=== PATIENT | female | born 1995 | race Caucasian/White ===

== ENCOUNTER 2019-09-07 13:27 | Emergency (ER) | payer MEDICAID ==
[~2019-09-07] VITALS: Ht 149.9 cm; Wt 84.4 kg
[2019-09-07 13:30] VITALS: BP_SYST 138
[2019-09-07] MEDS: KETOROLAC TROMETHAMINE 30 MG VIAL IVP ONE (15:05)
[2019-09-07] MEDS: NACL 0.9% 1,000 ML IV ONE (15:05)
[2019-09-07] MEDS: ONDANSETRON HCL 4 MG/2 ML VIAL IVP ONE (15:06)
[2019-09-07 15:19] LABS: BASOPHILS # (AUTO) 0.1 K/uL (0.0-0.2); EOSINOPHILS # (AUTO) 0.1 K/uL (0.0-0.4); EOSINOPHILS % (AUTO) 1.4 % (0.0-4.0); HEMATOCRIT 38.5 % (36-48); HEMOGLOBIN 13.1 g/dL (12.0-16.0); LYMPHOCYTES # (AUTO) 2.4 K/uL (1.0-5.5); LYMPHOCYTES % (AUTO) 31.5 % (20.5-51.5); MEAN CORPUSCULAR HEMOGLOBIN 28 pg (27-31); MEAN CORPUSCULAR HGB CONC 34 % (32-36); MEAN CORPUSCULAR VOLUME 81 fL (79.0-98.0); MONOCYTES # (AUTO) 0.5 K/uL (0.0-1.0); MONOCYTES % (AUTO) 6.6 % (1.7-9.3); NEUTROPHILS # (AUTO) 4.6 K/uL (1.8-7.7); NEUTROPHILS % (AUTO) 59.5 % (40.0-70.0); PLATELET COUNT (AUTO) 323 K/uL (130-430); RED BLOOD CELL COUNT(AUTO) 4.74 MIL/uL (4.2-6.2); WHITE BLOOD COUNT (AUTO) 7.7 K/uL (4.8-10.8)
[2019-09-07 15:22] LABS: CALCIUM 9.2 mg/dL (8.4-11.0); CREATININE 0.81 mg/dL (0.55-1.30); POTASSIUM 3.7 mmol/L (3.5-5.1)
[2019-09-07 15:28] LABS: ALBUMIN 3.7 g/dL (3.4-4.8); TOTAL BILIRUBIN 0.3 mg/dL (0.0-1.0)
[2019-09-07] MEDS: PANTOPRAZOLE SODIUM 40 MG/VIAL (PROTONIX) IVP ONE (16:25)
[2019-09-07 16:33] VITALS: BP_SYST 108
== END 2019-09-07 16:30 | disposition home or self-care (01) ==
LOC: SED 13:27
DX: R10.13 Epigastric pain (principal); D64.9 Anemia, unspecified
CPT/HCPCS: 36415; 74018; 76700; 80053; 81025; 83690; 85025; 96374; 96375; 99284; C9113; J1885; J2405; J7030

== ENCOUNTER 2021-05-01 17:17 | Emergency (ER) | payer MEDICAID ==
[~2021-05-01] VITALS: Ht 149.9 cm; Wt 88.5 kg
[2021-05-01 17:33] VITALS: BP_SYST 132
--- NOTE | 2021-05-01 17:50 | NUR ---
Patient to ER bed 4 to gown for evaluation. Side rails up. Report given to CORINA ODONNELL.
--- NOTE | 2021-05-01 17:55 | NUR ---
ER DR. ROMEO AT THE BEDSIDE EXAMINING PT
--- NOTE | 2021-05-01 18:00 | NUR ---
PT CAME IN FROM HOME C/O BILATERAL FLANK PAIN RADIATING TO LOWER ABD. DENIES N/V/D. PT IS AMBULATORY, AAOX4, V/S STABLE
[2021-05-01 18:28] LABS: BILIRUBIN,URINE NEGATIVE (NEGATIVE); GLUCOSE,URINE NEGATIVE (NEGATIVE); KETONES,URINE NEGATIVE (NEGATIVE); LEUKOCYTE ESTERASE ,URINE 2+ (NEGATIVE); NITRITE, URINE NEGATIVE (NEGATIVE); PROTEIN URINE NEGATIVE (NEGATIVE); UROBILINOGEN,URINE 0.2 (0.2-1.0)
[2021-05-01 18:52] LABS: BLOOD, URINE TRACE (NEGATIVE); COLOR,URINE STRAW (YELLOW)
[2021-05-01 18:53] LABS: CLARITY/URINE CLEAR (CLEAR)
[2021-05-01] MEDS ORDERED: CEPH250C PO (18:58)
[2021-05-01 19:02] LABS: BACTERIA,URINE FEW /HPF (None Seen); MUCUS,URINE None Seen /LPF (None Seen); RBC,URINE 0-3 /HPF (0-3)
--- NOTE | 2021-05-01 19:10 | NUR ---
Patient given written and verbal discharge instructions and verbalizes understanding. ER MD discussed with patient the results and treatment provided. Patient in stable condition. ID arm band removed. Rx of KEFLEX given. Patient educated on pain management and to follow up with PMD. Pain Scale 0/10. Opportunity for questions provided and answered. Medication side effect fact sheet provided.
[2021-05-01 19:18] VITALS: BP_SYST 132
== END 2021-05-01 19:18 | disposition home or self-care (01) ==
LOC: SED 17:17
DX: N39.0 Urinary tract infection, site not specified (principal); Z79.899 Other long term (current) drug therapy
CPT/HCPCS: 81000; 81025; 87086; 99283

== ENCOUNTER 2021-06-01 18:46 | Emergency (ER) | payer MEDICAID ==
[~2021-06-01] VITALS: Ht 154.9 cm; Wt 68.0 kg
[2021-06-01 18:46] VITALS: BP_SYST 128
[~2021-06-01 18:46] MED LIST: CEPH250C PO
--- NOTE | 2021-06-01 18:46 | NUR ---
BROUGHT BACK TO BED #3 AND TRIAGED. REPORT GIVEN TO [employer] [facility]
--- NOTE | 2021-06-01 18:50 | NUR ---
Pt came in with complaint of vaginal bleed spotting. Pt reports spotting throughout day notcing upon wiping when urinating. Pt denies any pain. Pt AAOX4 speaking full sentences no distress noted VSS. Last menstrual cycle was Mar 15 2021. Pt reports positive test approximatley last month
--- NOTE | 2021-06-01 19:09 | NUR ---
Urine collected and sent to lab.
--- NOTE | 2021-06-01 19:10 | NUR ---
Lab at bedside.
--- NOTE | 2021-06-01 19:16 | NUR ---
Care endorsed to Tyrese ODONNELL
[2021-06-01 19:40] LABS: BASOPHILS # (AUTO) 0.1 K/uL (0.0-0.2); BASOPHILS % (AUTO) 0.8 % (0.0-2.0); EOSINOPHILS # (AUTO) 0.1 K/uL (0.0-0.4); HEMATOCRIT 36.5 % (36-48); LYMPHOCYTES # (AUTO) 2.9 K/uL (1.0-5.5); LYMPHOCYTES % (AUTO) 32.2 % (20.5-51.5); MEAN CORPUSCULAR HEMOGLOBIN 27 pg (27-31); MEAN CORPUSCULAR HGB CONC 33 % (32-36); MEAN CORPUSCULAR VOLUME 81 fL (79.0-98.0); MONOCYTES # (AUTO) 0.5 K/uL (0.0-1.0); NEUTROPHILS # (AUTO) 5.3 K/uL (1.8-7.7); PLATELET COUNT (AUTO) 379 K/uL (130-430); RED BLOOD CELL COUNT(AUTO) 4.49 MIL/uL (4.2-6.2); RED CELL DISTRIBUTION WIDTH 15.4 % (9.0-15.0); WHITE BLOOD COUNT (AUTO) 8.9 K/uL (4.8-10.8)
[2021-06-01 19:44] LABS: BILIRUBIN,URINE NEGATIVE (NEGATIVE); BLOOD, URINE 1+ (NEGATIVE); CLARITY/URINE SL CLOUDY (CLEAR); COLOR,URINE YELLOW (YELLOW); GLUCOSE,URINE NEGATIVE (NEGATIVE); KETONES,URINE NEGATIVE (NEGATIVE); LEUKOCYTE ESTERASE ,URINE 1+ (NEGATIVE); NITRITE, URINE NEGATIVE (NEGATIVE); PROTEIN URINE NEGATIVE (NEGATIVE); UROBILINOGEN,URINE 0.2 (0.2-1.0)
[2021-06-01 19:50] LABS: INR 0.9 (0.8-1.2); PROTHROMBIN TIME 9.3 SECS (9.5-12.5)
[2021-06-01 19:56] LABS: BACTERIA,URINE MODERATE /HPF (None Seen); MUCUS,URINE None Seen /LPF (None Seen); URINE AMORPHOUS PHOSPHATES 2+ /HPF (None Seen)
[2021-06-01 20:50] VITALS: BP_SYST 128
--- NOTE | 2021-06-01 20:50 | NUR ---
Patient given written and verbal discharge instructions and verbalizes understanding. ER DR SANDRITA SCHROEDER discussed with patient the results and treatment provided. Patient in stable condition. ID arm band removed. Patient educated on pain management and to follow up with PMD. Pain Scale . Opportunity for questions provided and answered. Medication side effect fact sheet provided.
== END 2021-06-01 20:50 | disposition home or self-care (01) ==
LOC: SED 18:46
DX: O20.9 Hemorrhage in early pregnancy, unspecified (principal); Z79.899 Other long term (current) drug therapy; Z3A.01 Less than 8 weeks gestation of pregnancy
CPT/HCPCS: 36415; 76801; 76802; 81000; 81025; 84702; 85025; 85610-TC; 85730-TC; 86900; 86901; 87086; 99284

== ENCOUNTER 2021-09-30 18:41 | Emergency (ER) | payer MEDICAID ==
[~2021-09-30] VITALS: Ht 147.3 cm; Wt 89.8 kg
--- NOTE | 2021-09-30 18:45 | NUR ---
Pt triaged and placed in waiting room, EKG completed and reviewed by Dr. Leigh
[2021-09-30 19:00] VITALS: BP_SYST 134
--- NOTE | 2021-09-30 21:24 | NUR ---
Patient to ER bed FUNES to gophi for evaluation. Side rails up. Report given to PETEY ODONNELL
--- NOTE | 2021-09-30 22:11 | NUR ---
Pt BIB family to ED for Anxiety eval and mild chest pressure, with h/o anxiety. No other complaints Resting on gurney rails up
--- NOTE | 2021-09-30 22:15 | NUR ---
Dr. Licona bedside for pt eval
--- NOTE | 2021-09-30 22:19 | NUR ---
CXR well tolerated
--- NOTE | 2021-09-30 22:48 | NUR ---
Dr. Licona bedside for pt update
[2021-09-30] MEDS ORDERED: KETOROLAC TROMETHAMINE 60 MG/2 ML VIAL IM ONE (23:00)
[2021-09-30] MEDS ORDERED: METOCLOPRAMIDE HCL 10 MG/2 ML VIAL IM ONE (23:00)
--- NOTE | 2021-09-30 23:33 | NUR ---
VSS no s/s of acute distress Resting on gurney rails up
[2021-09-30 23:43] LABS: BASOPHILS # (AUTO) 0.1 K/uL (0.0-0.2); BASOPHILS % (AUTO) 0.8 % (0.0-2.0); EOSINOPHILS # (AUTO) 0.1 K/uL (0.0-0.4); EOSINOPHILS % (AUTO) 0.8 % (0.0-4.0); HEMATOCRIT 36.6 % (36-48); HEMOGLOBIN 12.2 g/dL (12.0-16.0); LYMPHOCYTES # (AUTO) 2.7 K/uL (1.0-5.5); LYMPHOCYTES % (AUTO) 29.6 % (20.5-51.5); MEAN CORPUSCULAR HEMOGLOBIN 26 pg (27-31); MEAN CORPUSCULAR HGB CONC 33 % (32-36); MEAN CORPUSCULAR VOLUME 78 fL (79.0-98.0); MONOCYTES # (AUTO) 0.5 K/uL (0.0-1.0); MONOCYTES % (AUTO) 5.9 % (1.7-9.3); NEUTROPHILS # (AUTO) 5.7 K/uL (1.8-7.7); NEUTROPHILS % (AUTO) 62.9 % (40.0-70.0); PLATELET COUNT (AUTO) 391 K/uL (130-430); RED BLOOD CELL COUNT(AUTO) 4.68 MIL/uL (4.2-6.2); RED CELL DISTRIBUTION WIDTH 15.3 % (9.0-15.0); WHITE BLOOD COUNT (AUTO) 9.1 K/uL (4.8-10.8)
[2021-10-01 00:14] LABS: CALCIUM 9.3 mg/dL (8.4-11.0); CREATININE 0.81 mg/dL (0.55-1.30); POTASSIUM 3.7 mmol/L (3.5-5.1)
[2021-10-01 00:25] LABS: TOTAL BILIRUBIN 0.3 mg/dL (0.0-1.0)
--- NOTE | 2021-10-01 00:39 | NUR ---
Lab spoke on phone promising results will be posted shortly
[2021-10-01 01:05] VITALS: BP_SYST 134
--- NOTE | 2021-10-01 01:05 | NUR ---
Patient given written and verbal discharge instructions and verbalizes understanding. ER MD discussed with patient the results and treatment provided. Patient in stable condition. ID arm band removed. Patient educated on pain management and to follow up with PMD. Pain Scale 0/10 Opportunity for questions provided and answered.
== END 2021-10-01 01:05 | disposition home or self-care (01) ==
LOC: SED 18:41
DX: R07.89 Other chest pain (principal); F41.9 Anxiety disorder, unspecified; Z79.899 Other long term (current) drug therapy
CPT/HCPCS: 36415; 71045; 80053; 84484; 84702; 85025; 93005; 96372; 99285; J1885

== ENCOUNTER 2021-11-25 15:37 | Emergency (ER) | payer MEDICAID ==
[~2021-11-25] VITALS: Ht 147.3 cm; Wt 83.5 kg
[2021-11-25 16:03] VITALS: BP_SYST 119
--- NOTE | 2021-11-25 16:03 | NUR ---
Patient triaged and placed in waiting room. VSS and patient appears in no acute distress at this time. Accompanied by self, awaiting available bed, and MD notified of need for MSE.
--- NOTE | 2021-11-25 16:08 | NUR ---
PAtient brought in complaining of lower abdominal pain for 2 days. The abdominal pain is described as cramping. Otherwise, denies vaginal bleeding, urinary symptoms, nausea, vomiting, or any other complaints.
--- NOTE | 2021-11-25 16:11 | NUR ---
ER Dr. Santillan in triage examining patient.
[2021-11-25 16:48] LABS: BASOPHILS # (AUTO) 0.1 K/uL (0.0-0.2); BASOPHILS % (AUTO) 0.8 % (0.0-2.0); EOSINOPHILS # (AUTO) 0.4 K/uL (0.0-0.4); EOSINOPHILS % (AUTO) 3.5 % (0.0-4.0); HEMATOCRIT 36.7 % (36-48); HEMOGLOBIN 12.4 g/dL (12.0-16.0); LYMPHOCYTES # (AUTO) 2.7 K/uL (1.0-5.5); LYMPHOCYTES % (AUTO) 26.5 % (20.5-51.5); MEAN CORPUSCULAR HEMOGLOBIN 26 pg (27-31); MEAN CORPUSCULAR HGB CONC 34 % (32-36); MEAN CORPUSCULAR VOLUME 77 fL (79.0-98.0); MONOCYTES # (AUTO) 0.7 K/uL (0.0-1.0); MONOCYTES % (AUTO) 7.4 % (1.7-9.3); NEUTROPHILS # (AUTO) 6.3 K/uL (1.8-7.7); NEUTROPHILS % (AUTO) 61.8 % (40.0-70.0); PLATELET COUNT (AUTO) 368 K/uL (130-430); RED BLOOD CELL COUNT(AUTO) 4.74 MIL/uL (4.2-6.2); RED CELL DISTRIBUTION WIDTH 16.3 % (9.0-15.0); WHITE BLOOD COUNT (AUTO) 10.1 K/uL (4.8-10.8)
[2021-11-25 18:07] VITALS: BP_SYST 116
--- NOTE | 2021-11-25 18:13 | NUR ---
Patient given written and verbal discharge instructions and verbalizes understanding. ER MD discussed with patient the results and treatment provided. Patient in stable condition. ID arm band removed. No Rx given. Patient educated on pain management and to follow up with PMD. Pain Scale 0/10 Opportunity for questions provided and answered. follow up in 48 hours for hcg check
== END 2021-11-25 18:07 | disposition home or self-care (01) ==
LOC: SED 15:37
DX: O26.891 Other specified pregnancy related conditions, first trimester (principal); R10.30 Lower abdominal pain, unspecified; Z79.899 Other long term (current) drug therapy; Z3A.01 Less than 8 weeks gestation of pregnancy
CPT/HCPCS: 36415; 76801; 81025; 84702; 85025; 99284

== ENCOUNTER 2021-11-27 10:57 | Emergency (ER) | payer MEDICAID, SELFPAY ==
[~2021-11-27] VITALS: Ht 147.3 cm; Wt 83.9 kg
--- NOTE | 2021-11-27 11:00 | NUR ---
Patient triaged and placed in waiting room. VSS and patient appears in no acute distress at this time. Accompanied by self , awaiting available bed, and MD notified of need for MSE.
--- NOTE | 2021-11-27 11:10 | NUR ---
Pt brought by self, A&Ox4, pt presents to ER for blood work/ pt states she was seen 2 days ago for abd cramping/ 4 weeks , pt was told to f/u in 2 days, denies bleeding, skin pink and warm, cap refill <3.
[2021-11-27 11:14] VITALS: BP_SYST 136
[2021-11-27 13:15] LABS: CALCIUM 9.2 mg/dL (8.4-11.0); CREATININE 0.58 mg/dL (0.55-1.30); POTASSIUM 3.6 mmol/L (3.5-5.1)
--- NOTE | 2021-11-27 14:05 | NUR ---
Dr Hester evaluating patient in the triage room
--- NOTE | 2021-11-27 16:50 | NUR ---
I WAS REPLENISHER FOR VAGINAL US. PT TOLERATED WELL.
[2021-11-27 17:45] LABS: HEMOGLOBIN 12.8 g/dL (12.0-16.0); MEAN CORPUSCULAR HEMOGLOBIN 26 pg (27-31); MEAN CORPUSCULAR HGB CONC 33 % (32-36); MEAN CORPUSCULAR VOLUME 79 fL (79.0-98.0); PLATELET COUNT (AUTO) 374 K/uL (130-430); RED BLOOD CELL COUNT(AUTO) 4.96 MIL/uL (4.2-6.2); RED CELL DISTRIBUTION WIDTH 16.2 % (9.0-15.0); WHITE BLOOD COUNT (AUTO) 8.6 K/uL (4.8-10.8)
[2021-11-27 18:13] VITALS: BP_SYST 136
--- NOTE | 2021-11-27 18:14 | NUR ---
Patient given written and verbal discharge instructions and verbalizes understanding. ER MD discussed with patient the results and treatment provided. Patient in stable condition. ID arm band removed. No Rx given. Patient educated on pain management and to follow up with PMD. Pain Scale 0/10. Opportunity for questions provided and answered. Medication side effect fact sheet provided.
== END 2021-11-27 18:13 | disposition home or self-care (01) ==
LOC: SED 10:57
DX: O26.891 Other specified pregnancy related conditions, first trimester (principal); R10.2 Pelvic and perineal pain; Z3A.01 Less than 8 weeks gestation of pregnancy
CPT/HCPCS: 36415; 80048; 83051; 84702; 85014; 85048; 85049-TC; 99283; 99284

== ENCOUNTER 2021-12-07 13:24 | Emergency (ER) | payer MEDICAID, SELFPAY ==
[~2021-12-07] VITALS: Ht 149.9 cm; Wt 56.7 kg
[2021-12-07 13:34] VITALS: BP_SYST 145
--- NOTE | 2021-12-07 13:34 | NUR ---
Patient to ER bed 06 to gown for evaluation. Side rails up.
--- NOTE | 2021-12-07 13:34 | NUR ---
26 years old female alert, oriented x4 walking to er with vaginal spotting reports 5 weeks LMP 10/27/21.
--- NOTE | 2021-12-07 13:35 | NUR ---
Dr Santillan evaluating patient at bedside
[2021-12-07 15:04] LABS: BASOPHILS # (AUTO) 0.1 K/uL (0.0-0.2); BASOPHILS % (AUTO) 0.9 % (0.0-2.0); EOSINOPHILS # (AUTO) 0.2 K/uL (0.0-0.4); EOSINOPHILS % (AUTO) 2.5 % (0.0-4.0); HEMATOCRIT 38.9 % (36-48); HEMOGLOBIN 12.8 g/dL (12.0-16.0); LYMPHOCYTES % (AUTO) 22.9 % (20.5-51.5); MEAN CORPUSCULAR HEMOGLOBIN 26 pg (27-31); MEAN CORPUSCULAR HGB CONC 33 % (32-36); MEAN CORPUSCULAR VOLUME 80 fL (79.0-98.0); MONOCYTES # (AUTO) 0.5 K/uL (0.0-1.0); MONOCYTES % (AUTO) 5.4 % (1.7-9.3); NEUTROPHILS # (AUTO) 5.9 K/uL (1.8-7.7); NEUTROPHILS % (AUTO) 68.3 % (40.0-70.0); PLATELET COUNT (AUTO) 374 K/uL (130-430); RED BLOOD CELL COUNT(AUTO) 4.89 MIL/uL (4.2-6.2); RED CELL DISTRIBUTION WIDTH 16.4 % (9.0-15.0); WHITE BLOOD COUNT (AUTO) 8.6 K/uL (4.8-10.8)
[2021-12-07 15:28] LABS: BILIRUBIN,URINE NEGATIVE (NEGATIVE); CLARITY/URINE CLEAR (CLEAR); COLOR,URINE YELLOW (YELLOW); GLUCOSE,URINE NEGATIVE (NEGATIVE); KETONES,URINE 1+ (NEGATIVE); LEUKOCYTE ESTERASE ,URINE 1+ (NEGATIVE); NITRITE, URINE NEGATIVE (NEGATIVE); PH,URINE 5.5 (5.0-8.0); PROTEIN URINE NEGATIVE (NEGATIVE); UROBILINOGEN,URINE 0.2 (0.2-1.0)
[2021-12-07 15:50] LABS: BLOOD, URINE TRACE (NEGATIVE)
[2021-12-07 15:52] LABS: BACTERIA,URINE FEW /HPF (None Seen)
[2021-12-07] MEDS ORDERED: NITR-85 PO (16:07)
[2021-12-07 16:51] VITALS: BP_SYST 122
--- NOTE | 2021-12-07 16:54 | NUR ---
condition stable d/c home with instructions after care reviewed understood left er ambulatory with steady gait.
--- NOTE | 2021-12-07 16:54 | NUR ---
Patient given written and verbal discharge instructions and verbalizes understanding. ER MD discussed with patient the results and treatment provided. Patient in stable condition. ID arm band removed. Rx of given. Patient educated on pain management and to follow up with PMD. Pain Scale . Opportunity for questions provided and answered. Medication side effect fact sheet provided.
== END 2021-12-07 16:51 | disposition home or self-care (01) ==
LOC: SED 13:24
DX: O20.0 Threatened abortion (principal); O23.40 Unspecified infection of urinary tract in pregnancy, unspecified trimester; Z3A.01 Less than 8 weeks gestation of pregnancy
CPT/HCPCS: 36415; 76801; 81000; 81002; 81025; 84702; 85025; 99284

== ENCOUNTER 2022-02-17 19:32 | Emergency (ER) | payer MEDICAID ==
[~2022-02-17] VITALS: Ht 147.3 cm; Wt 86.2 kg
[~2022-02-17 19:32] MED LIST changes: +NITR-85 PO
[2022-02-17 19:42] VITALS: BP_SYST 115
[2022-02-17 20:09] LABS: BILIRUBIN,URINE NEGATIVE (NEGATIVE); BLOOD, URINE NEGATIVE (NEGATIVE); CLARITY/URINE SL CLOUDY (CLEAR); COLOR,URINE YELLOW (YELLOW); GLUCOSE,URINE NEGATIVE (NEGATIVE); KETONES,URINE NEGATIVE (NEGATIVE); LEUKOCYTE ESTERASE ,URINE 3+ (NEGATIVE); NITRITE, URINE NEGATIVE (NEGATIVE); PROTEIN URINE NEGATIVE (NEGATIVE); UROBILINOGEN,URINE 0.2 (0.2-1.0)
[2022-02-17 20:19] LABS: BACTERIA,URINE MODERATE /HPF (None Seen); CALCIUM OXALATE CRYSTALS,UR 0-10 /HPF (None Seen); MUCUS,URINE 2+ /LPF (None Seen); RBC,URINE 0-3 /HPF (0-3); TRICHOMONAS,URINE Few /HPF (None Seen); WBC,URINE 20-50 /HPF (0-3)
[2022-02-17 20:22] LABS: BASOPHILS % (AUTO) 0.4 % (0.0-2.0); EOSINOPHILS # (AUTO) 0.2 K/uL (0.0-0.4); EOSINOPHILS % (AUTO) 2.3 % (0.0-4.0); HEMATOCRIT 34.7 % (36-48); HEMOGLOBIN 11.9 g/dL (12.0-16.0); LYMPHOCYTES # (AUTO) 2.1 K/uL (1.0-5.5); LYMPHOCYTES % (AUTO) 25.8 % (20.5-51.5); MEAN CORPUSCULAR HEMOGLOBIN 27 pg (27-31); MEAN CORPUSCULAR HGB CONC 34 % (32-36); MEAN CORPUSCULAR VOLUME 80 fL (79.0-98.0); MONOCYTES # (AUTO) 0.4 K/uL (0.0-1.0); MONOCYTES % (AUTO) 4.6 % (1.7-9.3); NEUTROPHILS # (AUTO) 5.4 K/uL (1.8-7.7); NEUTROPHILS % (AUTO) 66.9 % (40.0-70.0); PLATELET COUNT (AUTO) 349 K/uL (130-430); RED BLOOD CELL COUNT(AUTO) 4.36 MIL/uL (4.2-6.2); RED CELL DISTRIBUTION WIDTH 15.7 % (9.0-15.0); WHITE BLOOD COUNT (AUTO) 8.1 K/uL (4.8-10.8)
[2022-02-17 20:35] LABS: ALANINE AMINOTRANSFERASE 11 U/L (12-78); ANION GAP 9 (5-15); ASPARTATE AMINOTRANSFERASE 14 U/L (10-37); CALCIUM 9.8 mg/dL (8.4-11.0); CHLORIDE 103 mmol/L (98-107); CREATININE 0.58 mg/dL (0.55-1.30); GLUCOSE 102 mg/dL (70-99); LIPASE 87 U/L (73-393); POTASSIUM 3.4 mmol/L (3.5-5.1); SODIUM SERUM 137 mmol/L (136-145); TOTAL BILIRUBIN < 0.1 mg/dL (0.0-1.0); UREA NITROGEN, BLOOD 5 mg/dL (8-21)
[2022-02-17 20:36] LABS: GFR AFRICAN AMERICAN 163 mL/min (>90)
[2022-02-21 01:06] LABS: CHLAMYDIA TRACHOMATIS NAA Negative (Negative); NEISSERIA GONORRHOEAE NAA Negative (Negative)
== END 2022-02-17 23:16 | disposition left against medical advice (07) ==
LOC: SED 19:32
DX: O26.892 Other specified pregnancy related conditions, second trimester (principal); M54.50 Low back pain, unspecified; Z3A.20 20 weeks gestation of pregnancy; Z53.21 Procedure and treatment not carried out due to patient leaving prior to being seen by health care provider
CPT/HCPCS: 36415; 76805-TC; 80053; 81000; 83690; 85025; 87086; 87491; 87591; 99284

== ENCOUNTER 2023-09-20 23:13 | Emergency (ER) | payer MEDICAID ==
[~2023-09-20] VITALS: Ht 149.9 cm; Wt 90.7 kg
[2023-09-20 23:24] VITALS: BP_SYST 125; PULSE 104; RESP 18; TEMP 98.5; O2SAT 97
[2023-09-20] MEDS ORDERED: ONDA-8 TL (23:42)
[2023-09-20] MEDS ORDERED: IBUP-1969 PO (23:42)
[2023-09-20] MEDS ORDERED: PHEN-707 PO (23:42)
[2023-09-20] MEDS ORDERED: ONDANSETRON 4 MG ODT TAB PO ONE (23:45)
[2023-09-20] MEDS ORDERED: IBUPROFEN 600 MG TABLET PO ONE (23:45)
[2023-09-21] VITALS: BP_SYST 123; PULSE 97; RESP 19; TEMP 98.2; O2SAT 98
[2023-09-21 00:14] LABS: COVID19 ANTIGEN SOFIA FIA NEGATIVE (NEGATIVE)
[2023-09-21 00:21] LABS: INFLUENZA TYPE A NEGATIVE (NEGATIVE); INFLUENZA TYPE B NEGATIVE (NEGATIVE)
== END 2023-09-21 | disposition home or self-care (01) ==
LOC: SED 23:13
DX: B34.9 Viral infection, unspecified (principal); R11.2 Nausea with vomiting, unspecified; R05.9 Cough, unspecified; M79.10 Myalgia, unspecified site; Z79.899 Other long term (current) drug therapy; Z20.822 Contact with and (suspected) exposure to COVID-19
CPT/HCPCS: 99283; 87426; 36415; 87804 ×2; Q0162

== ENCOUNTER 2024-06-26 04:00 | Emergency (ER) | payer MEDICAID ==
[~2024-06-26] VITALS: Ht 149.9 cm; Wt 89.8 kg
[~2024-06-26 04:00] MED LIST changes: +IBUP-1969 PO; +ONDA-8 TL; +PHEN-707 PO
[2024-06-26 04:15] VITALS: BP_SYST 135; PULSE 107; RESP 20; TEMP 97.6; O2SAT 97
[2024-06-26 04:33] LABS: BASOPHILS # (AUTO) 0.1 K/uL (0.0-0.2); BASOPHILS % (AUTO) 0.7 % (0.0-2.0); EOSINOPHILS # (AUTO) 0.1 K/uL (0.0-0.4); HEMOGLOBIN 11.6 g/dL (12.0-16.0); LYMPHOCYTES # (AUTO) 2.6 K/uL (1.0-5.5); LYMPHOCYTES % (AUTO) 25.7 % (20.5-51.5); MEAN CORPUSCULAR HEMOGLOBIN 24 pg (27-31); MEAN CORPUSCULAR HGB CONC 34 % (32-36); MEAN CORPUSCULAR VOLUME 72 fL (79.0-98.0); MONOCYTES # (AUTO) 0.7 K/uL (0.0-1.0); MONOCYTES % (AUTO) 6.7 % (1.7-9.3); NEUTROPHILS # (AUTO) 6.7 K/uL (1.8-7.7); NEUTROPHILS % (AUTO) 65.9 % (40.0-70.0); PLATELET COUNT (AUTO) 415 K/uL (130-430); RED BLOOD CELL COUNT(AUTO) 4.73 MIL/uL (4.2-6.2); RED CELL DISTRIBUTION WIDTH 17.1 % (9.0-15.0); WHITE BLOOD COUNT (AUTO) 10.2 K/uL (4.8-10.8)
[2024-06-26 05:16] LABS: ALBUMIN 3.5 g/dL (3.4-4.8); BILIRUBIN,DIRECT 0.1 mg/dL (0.0-0.3); CALCIUM 8.9 mg/dL (8.4-11.0); CREATININE 0.87 mg/dL (0.55-1.30); POTASSIUM 3.4 mmol/L (3.5-5.1); TOTAL BILIRUBIN 0.2 mg/dL (0.0-1.0)
[2024-06-26] MEDS: ACETAMINOPHEN 500 MG TABLET PO ONE (07:26)
[2024-06-26 07:28] VITALS: BP_SYST 127; PULSE 91; RESP 20; TEMP 98.2; O2SAT 100
== END 2024-06-26 07:40 | disposition home or self-care (01) ==
LOC: SED 04:00
DX: O20.9 Hemorrhage in early pregnancy, unspecified (principal); Z3A.01 Less than 8 weeks gestation of pregnancy; Z79.899 Other long term (current) drug therapy; Z79.2 Long term (current) use of antibiotics
CPT/HCPCS: 36415; 76801; 76817; 80048; 80076; 84702; 85025; 86901; 99284

== ENCOUNTER 2024-06-28 08:59 | Emergency (ER) | payer MEDICAID ==
[~2024-06-28] VITALS: Ht 149.9 cm; Wt 89.8 kg
[2024-06-28 09:07] VITALS: BP_SYST 123; PULSE 92; RESP 18; TEMP 97.5; O2SAT 98
[2024-06-28 10:28] VITALS: BP_SYST 104; PULSE 87; RESP 20; TEMP 97.5; O2SAT 97
== END 2024-06-28 10:29 | disposition home or self-care (01) ==
LOC: SED 08:59
DX: O20.0 Threatened abortion (principal); Z3A.00 Weeks of gestation of pregnancy not specified; Z79.899 Other long term (current) drug therapy; Z79.2 Long term (current) use of antibiotics
CPT/HCPCS: 36415; 84702; 99283